=== PATIENT | male | born 1940 | race Caucasian/White ===

== ENCOUNTER → 2017-10-31 | Outpatient (CLI) | payer MEDICARE, BC ==
[2017-10-31 14:44] LABS: Basophils % (A) 1 %; Eosinophils # (A) 0.1 k/uL (0-0.7); Eosinophils % (A) 2 %; HCT 41.1 % (39.0-53.0); HGB 13.6 gm/dL (13.0-17.5); Lymphocytes # (A) 1.2 k/uL (1.0-4.8); Lymphocytes % (A) 29 %; MCH 29.6 pg (25.0-35.0); MCV 89.6 fL (80.0-100.0); Mean Platelet Volume 7.8; Monocytes # (A) 0.4 k/uL (0-1.0); Monocytes % (A) 9 %; Neutrophils # (A) 2.4 k/uL (1.3-7.7); Neutrophils % (A) 57 %; Platelet Count 142 k/uL (150-450); RBC 4.58 m/uL (4.30-5.90); RDW 13.8 % (11.5-15.5); WBC 4.2 k/uL (3.8-10.6)
[2017-10-31 15:08] LABS: Anion Gap 5 mmol/L; Blood Urea Nitrogen 13 mg/dL (9-20); Calcium 8.9 mg/dL (8.4-10.2); Carbon Dioxide 30 mmol/L (22-30); Chloride 101 mmol/L (98-107); Glucose 102 mg/dL (74-99); Potassium 4.6 mmol/L (3.5-5.1); Sodium 136 mmol/L (137-145)
[2017-10-31 15:34] LABS: Prostate Specific Antigen 5.67 ng/mL (0.00-4.00)
== END | disposition home or self-care (01) ==
LOC: LABPAT 14:04
PROVIDERS: ATTEND Urology
DX: Z01.818 Encounter for other preprocedural examination (principal); Z01.812 Encounter for preprocedural laboratory examination; N40.1 Benign prostatic hyperplasia with lower urinary tract symptoms; R35.0 Frequency of micturition; R31.29 Other microscopic hematuria; R97.20 Elevated prostate specific antigen [PSA]; R53.83 Other fatigue; Z79.899 Other long term (current) drug therapy
CPT/HCPCS: 36415; 80048; 84153; 85025; 87086; 93005

== ENCOUNTER 2017-11-14 08:30 | Day surgery (SDC) | payer MEDICARE, BC ==
[2017-11-05 12:52] VITALS: BMI 22.4
--- NOTE | 2017-11-11 21:36 | P.GSHP ---
History of Present Illness H&P Date: 11/11/17 Chief Complaint: BPH with obstruction The patient is a 76-year-old white male wwith known BPH. He has been treated with combination medical therapy (tamsulosin and finasteride), but continues to experience difficulty emptying his bladder. Cystoscopy reveals a proximal bulbous urethral stricture, as well as a completely occluding prostate. He thus comes for cystoscopy, internal ureterotomy, and transurethral resection of prostate (TURP). The patient's PSA level has been persistently elevated. Prostate ultrasound in 2011 revealed a prostate volume of 72 cc. Biopsies were negative. - Gastrointestinal Gastrointestinal: Reports abdominal pain - Integumentary Integumentary: Reports rash Past Medical History Past Medical History: Hyperlipidemia, Prostate Disorder Additional Past Medical History / Comment(s): BPH History of Any Multi-Drug Resistant Organisms: None Reported Past Surgical History: Hernia Repair Additional Past Surgical History / Comment(s): Nasal surgery, Colonoscopy Past Anesthesia/Blood Transfusion Reactions: No Reported Reaction Smoking Status: Never smoker - Past Family History Sister(s) Family Medical History: Cancer Medications and Allergies Home Medications Medication Instructions Recorded Confirmed Type Tamsulosin HCl [Flomax] 0.4 mg PO DAILY 08/01/15 11/05/17 History Aspirin [Adult Low Dose Aspirin EC] 81 mg PO DAILY 03/18/17 11/05/17 History Allergies Allergy/AdvReac Type Severity Reaction Status Date / Time No Known Allergies Allergy Verified 11/05/17 12:32 Surgical - Exam - General well developed, well nourished, no distress - Respiratory normal respiratory effort, clear to auscultation - Cardiovascular Rhythm: regular Abnormal Heart Sounds: no systolic murmur, no diastolic murmur, no rub, no S3 Gallop, no S4 Gallop, no click, no other - Abdomen Abdomen: soft, non tender, no guarding, no rigid, no rebound - Genitourinary normal penis with no external lesions, testicles non-tender Assessment and Plan (1) Enlarged prostate with lower urinary tract symptoms (LUTS) Status: Acute Code(s): N40.1 - BENIGN PROSTATIC HYPERPLASIA WITH LOWER URINARY TRACT SYMP SNOMED Code(s): 919924853 (2) Urethral stricture Status: Acute Code(s): N35.9 - URETHRAL STRICTURE, UNSPECIFIED SNOMED Code(s ): 52512802 Plan: Cystoscopy, internal ureterotomy, bipolar transurethral resection of prostate ( TURP). The procedure has been reviewed in detail with the patient. Potential risks include anesthesia, bleeding, infection, urinary incontinence, persistent voiding symptoms, bladder neck contracture, recurrent stricture, erectile dysfunction, and retrograde ejaculation. He also understands the possibility that occult prostate cancer will be identified.
[~2017-11-14 08:30] MED LIST: DEXAMETHASONE SOD PHOSPHATE 10 MG/ML 1 ML VIAL IV ONE; HYDROmorphone 1 MG/ML 1 ML SYRINGE IVP PRN; ONDANSETRON 4 MG/2 ML VIAL IVP ONE; ceFAZolin IN SWFI 2 GM/20 ML SYRINGE IVP ONE
[2017-11-14] MEDS: LACTATED RINGERS 1,000 ML IV SCH ×2 (08:59→13:43)
[2017-11-14] MEDS ORDERED: LIDOCAINE 1% 20 ML VIAL (10MG/ML) FOR IV START INTRADERMA ONE (08:59)
[2017-11-14] MEDS ORDERED: fentaNYL (PF) 50 MCG/ML 2 ML AMP ONE (09:20)
[2017-11-14] MEDS ORDERED: SUCCINYLCHOLINE CHLORIDE 100 MG/5 ML SYR IV ONE (09:20)
[2017-11-14] MEDS ORDERED: MIDAZOLAM 2 MG/2 ML VIAL ONE (09:20)
[2017-11-14] MEDS ORDERED: SODIUM CHLORIDE 0.9% 50 ML with ceFAZolin 2,000 MG IV ONE ×2 (09:20)
[2017-11-14] MEDS ORDERED: ePHEDrine SULFATE/0.9% NACL/PF 50 MG/5 ML SYRINGE IV ONE (09:20)
[2017-11-14] MEDS ORDERED: WATER FOR INJECTION, STERILE 10 ML VIAL IV ONE (09:20)
[2017-11-14] MEDS ORDERED: PROPOFOL 10 MG/ML 20 ML VIAL IV ONE (09:20)
[2017-11-14] MEDS ORDERED: LIDOCAINE 1% INJ 10MG/ML (20 ML MDV) ONE (09:20)
[2017-11-14] MEDS ORDERED: LACTATED RINGERS 1,000 ML IV ONE (12:00)
[2017-11-14] MEDS ORDERED: BELLADONNA-OPIUM 16.2-60 MG 1 EACH SUPP RECTAL PRN (13:20)
[2017-11-14] MEDS ORDERED: ACETAMINOPHEN TAB 325 MG TAB PO PRN (13:20)
[2017-11-14] MEDS ORDERED: HYDROmorphone 1 MG/ML 1 ML SYRINGE IVP PRN (13:21)
[2017-11-14] MEDS ORDERED: HYDROcodone/APAP 5-325MG 1 EACH TAB PO PRN ×2 (13:21)
[2017-11-14] MEDS: DEXTROSE 5%-0.45% NACL 1,000 ML IV SCH (14:04)
[2017-11-14] MEDS: SODIUM CHLORIDE 0.9% IRRIG 3,000 ML BAG IRRIGATION SCH (14:58)
--- NOTE | 2017-11-14 18:15 | P.OP ---
Date of Procedure: 11/14/17 Preoperative Diagnosis: Urethral stricture, BPH Postoperative Diagnosis: Same Procedure(s) Performed: Cystoscopy, direct visual internal ureterotomy (DVIU), bipolar transurethral resection of prostate (TURP) Anesthesia: RENETTA Surgeon: Shawn Pittman Estimated Blood Loss (ml): 300 IV fluids (ml): 1,000 Pathology: other (prostate chips) Condition: stable Disposition: PACU Indications for Procedure: The patient is a 76-year-old white male wwith known BPH. He has been treated with combination medical therapy (tamsulosin and finasteride), but continues to experience difficulty emptying his bladder. Cystoscopy reveals a proximal bulbous urethral stricture, as well as a completely occluding prostate. He thus comes for cystoscopy, internal ureterotomy, and transurethral resection of prostate (TURP). Operative Findings: Proximal bulbous urethral stricture. Completely obstructing trilobar BPH. Description of Procedure: The patient was taken to the operating room and placed in the dorsolithotomy position, with his legs supported in Milad stirrups. The external genitalia was prepped and draped sterilely. The 0 lens was used to advance the visual urethrotome into the urethra. A stricture was encountered within the bulbous urethra, measuring approximately 14 [place] Islander in caliber. The length of the stricture was approximately 1 cm. Using the half-khoury blade, the stricture was incised at the 12 o'clock position. The incision was carried through the full- thickness of the stricture. It was then possible to advance the visual urethrotome into the bladder. The visual urethrotome was removed, and the Stortz resectoscope sheath was introduced into the bladder. The ureteral orifices could not be identified, as there were obscured by a large median lobe. The resectoscope was withdrawn into the bulbous urethra. Lateral lobe enlargement was also noted, resulting in complete obstruction of the prostatic urethra. Using the bipolar cutting loop, the median lobe was resected in its entirety. Next, each of the lateral lobes were resected down to the surgical capsule. There was a considerable amount of anterior tissue, which was then resected. The floor of the prostate was then resected, proximal to the verumontanum. This left the prostatic fossa wide open. The apical tissue was then carefully resected. Blood loss throughout the procedure was somewhat greater than is typical, at times making visualization difficult. The entire prostatic fossa was carefully examined. Any areas of bleeding were controlled with electrocautery, but it was not possible to obtain excellent hemostasis. Care was taken not to resect the apical tissue beyond the verumontanum, thus leaving the external urinary sphincter intact. The Fishki evacuator was used to remove all prostatic chips from the bladder. These were saved and sent for pathologic examination. The resectoscope was removed, and a 22-[place] Islander, three-way Storm catheter was placed. Continuous bladder irrigation was started using 0.9 normal saline. The return was pink tinged. The patient tolerated the procedure well was taken to the recovery room in stable condition.
[2017-11-14] MEDS: DOCUSATE 100 MG CAP PO SCH (20:41)
[2017-11-15] MEDS: DEXTROSE 5%-0.45% NACL 1,000 ML IV SCH ×2 (04:11→17:27)
[2017-11-15] MEDS: LACTATED RINGERS 1,000 ML IV SCH (07:31)
[2017-11-15] MEDS: DOCUSATE 100 MG CAP PO SCH ×2 (08:03→20:29)
[2017-11-15] MEDS ORDERED: HYDROmorphone 2 MG TAB PO PRN (11:09)
[2017-11-15 15:18] VITALS: RESP 16
[2017-11-15] MEDS: SODIUM CHLORIDE 0.9% IRRIG 3,000 ML BAG IRRIGATION SCH (16:41)
--- NOTE | 2017-11-15 20:31 | P.PN ---
Progress Note - Text Progress Note Date: 11/15/17 The patient was seen earlier this morning. At that time, the urine was essentially clear with continuous bladder irrigation running. He was comfortable. He was afebrile with stable vital signs. Continuous bladder irrigation was held, and throughout the day hematuria was noted without clots. The decision was made for him to remain hospitalized an additional day.
[2017-11-16] MEDS: DOCUSATE 100 MG CAP PO SCH (11:08)
--- NOTE | 2017-11-16 12:45 | P.DS ---
Providers Expected date of discharge: 11/16/17 Attending physician: Shawn Pittman Primary care physician: Mikey Siuer - Discharge Diagnosis(es) (1) Enlarged prostate with lower urinary tract symptoms (LUTS) Current Visit: No Status: Acute (2) Urethral stricture Current Visit: No Status: Acute Hospital Course: On the day of admission, the patient underwent a DVIU and bipolar TURP. Postoperatively, there was somewhat more bleeding than is typical. He was otherwise afebrile with stable vital signs, and quite comfortable. Continuous bladder irrigation was discontinued on the first postoperative day, but the urine was pinkred in color. On the second postoperative day, the urine was clear yellow in color, and he was comfortable. He will thus be discharged home with the Storm catheter. Procedures: Cystoscopy, DVIU, bipolar TURP on 11/14/2017. Patient Condition at Discharge: Good Plan - Discharge Summary Discharge Rx Participant: Yes New Discharge Prescriptions: No Action Tamsulosin HCl [Flomax] 0.4 mg PO DAILY Aspirin [Adult Low Dose Aspirin EC] 81 mg PO DAILY Discharge Medication List Tamsulosin HCl [Flomax] 0.4 mg PO DAILY 08/01/15 [History] Aspirin [Adult Low Dose Aspirin EC] 81 mg PO DAILY 03/18/17 [History] Follow up Appointment(s)/Referral(s): Shawn Pittman MD [STAFF PHYSICIAN] - 10 Days Activity/Diet/Wound Care/Special Instructions: Discharge home with Storm catheter. Plug irrigation port of the catheter. No lifting or strenuous activity. Drink plenty of fluids. Patient has been instructed to remove Storm catheter early in the morning on 11/19/2017. Discharge Disposition: HOME SELF-CARE
[2017-11-16 14:44] VITALS: BP 141/67; PULSE 85; TEMP 97.6
[2017-11-16] MEDS: SODIUM CHLORIDE 0.9% IRRIG 3,000 ML BAG IRRIGATION SCH (17:24)
== END 2017-11-16 18:40 | disposition home or self-care (01) ==
LOC: OR 08:30 → 3SUR 12:46 → OR 11-16 18:40
PROVIDERS: ATTEND Urology
DX: N40.1 Benign prostatic hyperplasia with lower urinary tract symptoms (principal); R39.14 Feeling of incomplete bladder emptying; Q62.10 Congenital occlusion of ureter, unspecified
CPT/HCPCS: 88305; 52601; J2250; J1100; J2405; J2001; J3010; J0330; J2704; J0690

== ENCOUNTER 2017-11-22 12:19 | Observation (INO) | payer MEDICARE, BC ==
[2017-11-22] MEDS ORDERED: SODIUM CHLORIDE 0.9% IRRIGATIO 3,000 ML IRRIGATION ONE ×4 (12:32→16:42)
--- NOTE | 2017-11-22 12:35 | ED ---
Male Urogenital HPI - General Source: patient, EMS, RN notes reviewed Mode of arrival: EMS Limitations: no limitations <Percy Mckeon - Last Filed: 11/22/17 18:03> <Mikey Jones - Last Filed: 11/23/17 00:27> - General Chief complaint: Urogenital Stated complaint: Urinary Retention Time Seen by Provider: 11/22/17 12:23 - History of Present Illness Initial comments: 76-year-old male presents emergency Department as a transfer from [facility] for urinary retention, hematuria. Patient had a TURP procedure by Dr. Pittman on 11/14/2017. Patient states he self removed his catheter on November 20. Patient states he is able to go he did state that there was some burning, mild blood states that since last night into today he was unable to really get much urine out. Patient went to the hospital was found to have urinary retention secondary to a blood clot. He did have a Storm placed there were unable to irrigate it thoroughly replaced it with a three-way Storm. Patient states that they're able to irrigate some urine output is very bloody and he was transferred here for further care. Patient states he feels that it's building up again and states that he feels some pressure in his lower abdomen. Patient denies any vomiting, diarrhea, constipation, fever, chills. (Percy Mckeon) - Related Data Home Medications Medication Instructions Recorded Confirmed Tamsulosin HCl [Flomax] 0.4 mg PO DAILY 08/01/15 11/22/17 Aspirin [Adult Low Dose Aspirin EC] 81 mg PO DAILY 03/18/17 11/22/17 Allergies Allergy/AdvReac Type Severity Reaction Status Date / Time No Known Allergies Allergy Verified 11/22/17 17:34 Review of Systems ROS Other: All systems not noted in ROS Statement are negative. <Percy Mckeon - Last Filed: 11/22/17 18:03> ROS Other: All systems not noted in ROS Statement are negative. <Mikey Jones - Last Filed: 11/23/17 00:27> ROS Statement: Those systems with pertinent positive or pertinent negative responses have been documented in the HPI. Past Medical History Past Medical History: Prostate Disorder Additional Past Medical History / Comment(s): BPH History of Any Multi-Drug Resistant Organisms: None Reported Past Surgical History: Hernia Repair Additional Past Surgical History / Comment(s): nasal surgery and colonoscopy, TURP Past Anesthesia/Blood Transfusion Reactions: No Reported Reaction Past Psychological History: No Psychological Hx Reported Smoking Status: Never smoker Past Alcohol Use History: Occasional Past Drug Use History: None Reported - Past Family History Sister(s) Family Medical History: Cancer <Percy Mckeon - Last Filed: 11/22/17 18:03> General Exam Limitations: no limitations General appearance: alert, in no apparent distress Head exam: Present: atraumatic, normocephalic, normal inspection Neck exam: Present: normal inspection. Absent: tenderness, meningismus, lymphadenopathy Respiratory exam: Present: normal lung sounds bilaterally. Absent: respiratory distress, wheezes, rales, rhonchi, stridor Cardiovascular Exam: Present: regular rate, normal rhythm, normal heart sounds. Absent: systolic murmur, diastolic murmur, rubs, gallop, clicks GI/Abdominal exam: Present: soft, tenderness (Mild suprapubic), normal bowel sounds. Absent: distended, guarding, rebound, rigid Back exam: Absent: CVA tenderness (R), CVA tenderness (L) Skin exam: Present: warm, dry, intact, normal color. Absent: rash <Percy Mckeon - Last Filed: 11/22/17 18:03> Vital Signs 11/22/17 11/22/17 12:28 17:25 Temperature 97.3 F L 98.3 F Pulse Rate 79 80 Respiratory 18 18 Rate Blood Pressure 199/95 139/69 O2 Sat by Pulse 99 99 Oximetry Medical Decision Making - Lab Data Result diagrams: 11/22/17 12:33 11/22/17 12:33 <Percy Mckeon - Last Filed: 11/22/17 18:03> - Lab Data Result diagrams: 11/22/17 12:33 11/22/17 12:33 <Mikey Jones - Last Filed: 11/23/17 00:27> - Medical Decision Making 76-year-old male presented from [place] for urinary retention, hematuria. Patient had gross hematuria while in the emergency department. He's had constant irrigation, flushing for clot removal. He continues to have bleeding at this time. Patient was evaluated by urology Dr. Prado in the emergency department. Patient will be taken to the lower at this time. (Percy Mckeon) 76-year-old male with urinary retention and hematuria. Patient was evaluated by previous physician, Dr. Summers. Patient was awaiting bladder irrigation in the emergency department with plans for a large. Patient evaluated by urology and taken to the operating room. I personally did not evaluate this patient. ( Mikey Jones) - Lab Data Lab Results 11/22/17 11/22/17 11/22/17 Range/Units 12:33 12:33 12:33 WBC 8.8 (3.8-10.6) k/uL RBC 3.71 L (4.30-5.90) m/uL Hgb 10.8 L (13.0-17.5) gm/dL Hct 32.3 L (39.0-53.0) % MCV 86.9 (80.0-100.0) fL MCH 29.2 (25.0-35.0) pg MCHC 33.6 (31.0-37.0) g/dL RDW 13.6 (11.5-15.5) % Plt Count 163 (150-450) k/uL Neutrophils % 83 % Lymphocytes % 10 % Monocytes % 5 % Eosinophils % 1 % Basophils % 0 % Neutrophils # 7.3 (1.3-7.7) k/uL Lymphocytes # 0.9 L (1.0-4.8) k/uL Monocytes # 0.5 (0-1.0) k/uL Eosinophils # 0.1 (0-0.7) k/uL Basophils # 0.0 (0-0.2) k/uL PT 10.5 (9.0-12.0) sec INR 1.1 (<1.2) APTT 23.3 (22.0-30.0) sec Sodium 132 L (137-145) mmol/L Potassium 4.4 (3.5-5.1) mmol/L Chloride 101 (98-107) mmol/L Carbon Dioxide 25 (22-30) mmol/L Anion Gap 6 mmol/L BUN 14 (9-20) mg/dL Creatinine 0.69 (0.66-1.25) mg/dL Est GFR (CKD-EPI)AfAm >90 (>60 ml/min/1.73 sqM) Est GFR (CKD-EPI)NonAf >90 (>60 ml/min/1.73 sqM) Glucose 115 H (74-99) mg/dL Calcium 8.4 (8.4-10.2) mg/dL Total Bilirubin 0.5 (0.2-1.3) mg/dL AST 30 (17-59) U/L ALT 39 (21-72) U/L Alkaline Phosphatase 67 (38-126) U/L Total Protein 5.2 L (6.3-8.2) g/dL Albumin 3.2 L (3.5-5.0) g/dL Disposition <Percy Mckeon - Last Filed: 11/22/17 18:03> <Mikey Jones - Last Filed: 11/23/17 00:27> Clinical Impression: Hematuria, Urinary retention, Status post recent transurethral resection of prostate Disposition: ADMITTED IP TO THIS HOSP Condition: Fair
[2017-11-22 12:52] LABS: Basophils % (A) 0 %; Eosinophils # (A) 0.1 k/uL (0-0.7); Eosinophils % (A) 1 %; HCT 32.3 % (39.0-53.0); HGB 10.8 gm/dL (13.0-17.5); Lymphocytes # (A) 0.9 k/uL (1.0-4.8); Lymphocytes % (A) 10 %; MCH 29.2 pg (25.0-35.0); MCHC 33.6 g/dL (31.0-37.0); MCV 86.9 fL (80.0-100.0); Monocytes # (A) 0.5 k/uL (0-1.0); Monocytes % (A) 5 %; Neutrophils # (A) 7.3 k/uL (1.3-7.7); Neutrophils % (A) 83 %; Platelet Count 163 k/uL (150-450); RBC 3.71 m/uL (4.30-5.90); RDW 13.6 % (11.5-15.5); WBC 8.8 k/uL (3.8-10.6)
[2017-11-22 13:04] LABS: INR 1.1 (<1.2); Partial Thromboplastin Time 23.3 sec (22.0-30.0); Prothrombin Time 10.5 sec (9.0-12.0)
[2017-11-22 13:08] LABS: ALT 39 U/L (21-72); AST 30 U/L (17-59); Albumin 3.2 g/dL (3.5-5.0); Alkaline Phosphatase 67 U/L (38-126); Anion Gap 6 mmol/L; Blood Urea Nitrogen 14 mg/dL (9-20); Calcium 8.4 mg/dL (8.4-10.2); Carbon Dioxide 25 mmol/L (22-30); Chloride 101 mmol/L (98-107); Glucose 115 mg/dL (74-99); Potassium 4.4 mmol/L (3.5-5.1); Sodium 132 mmol/L (137-145); Total Bilirubin 0.5 mg/dL (0.2-1.3); Total Protein 5.2 g/dL (6.3-8.2)
--- NOTE | 2017-11-22 18:05 | P.GSHP ---
History of Present Illness H&P Date: 11/22/17 Chief Complaint: Gross hematuria This is an interval history and physical. The patient originally underwent TURP and DVIU performed by Dr. Pittman on 11/14/2017 for treatment of bladder outflow obstruction secondary to BPH and a urethral stricture. The patient was discharged on 11/16 with his catheter in place. He says his urine was clear by 11/18 and he removed his catheter as directed on 11/19. He says that he began experiencing bloody urine immediately after the catheter is removed. The patient was able to void up until this morning when he began experiencing blood clots which prevented him from emptying his bladder. He went to the [place] emergency room early this morning where a catheter was inserted and multiple clots were removed. A three-way catheter was inserted as the patient continued to have gross hematuria. He was transferred to the [facility] emergency room where he continued to have gross hematuria. I saw the patient at approximately 3:30 is afternoon and irrigated several clots from his bladder. At that time his bladder hadn't been distended by irrigating fluid to over 500 mL. Since then he has continued to have bright red blood draining from the bladder despite continuous irrigation. The findings are consistent with an arterial bleed. Cystoscopy under anesthesia is planned to control the bleeding. The remainder the patient's history and physical are essentially unchanged from that noted on the history and physical performed by Dr. Pittman prior to the surgery done on 11/14/2017. - Review of Systems All systems: negative (as noted on the history and physical.) Past Medical History Past Medical History: Prostate Disorder Additional Past Medical History / Comment(s): BPH History of Any Multi-Drug Resistant Organisms: None Reported Past Surgical History: Hernia Repair, Prostate Surgery (Bipolar TURP and direct vision internal urethrotomy 11/14/2017) Additional Past Surgical History / Comment(s): nasal surgery and colonoscopy, TURP Past Anesthesia/Blood Transfusion Reactions: No Reported Reaction Past Psychological History: No Psychological Hx Reported Smoking Status: Never smoker Past Alcohol Use History: Occasional Past Drug Use History: None Reported - Past Family History Sister(s) Family Medical History: Cancer Medications and Allergies Home Medications Medication Instructions Recorded Confirmed Type Tamsulosin HCl [Flomax] 0.4 mg PO DAILY 08/01/15 11/22/17 History Aspirin [Adult Low Dose Aspirin EC] 81 mg PO DAILY 03/18/17 11/22/17 History Allergies Allergy/AdvReac Type Severity Reaction Status Date / Time No Known Allergies Allergy Verified 11/22/17 17:34 Surgical - Exam Vital Signs Temp Pulse Resp BP Pulse Ox 97.3 F L 79 18 199/95 99 11/22/17 12:28 11/22/17 12:28 11/22/17 12:28 11/22/17 12:28 11/22/17 12:28 - General well developed, moderate distress - Respiratory normal respiratory effort - Abdomen Abdomen: tender (suprapubic area prior to drainage of bladder) - Genitourinary normal penis with no external lesions, other (22-Latvian three-way catheter is in place and is draining red colored urine with occasional clots despite continuous bladder irrigation) Results - Labs 11/22/17 12:33 11/22/17 12:33 Abnormal Lab Results - Last 24 Hours (Table) 11/22/17 11/22/17 Range/Units 12:33 12:33 RBC 3.71 L (4.30-5.90) m/uL Hgb 10.8 L (13.0-17.5) gm/dL Hct 32.3 L (39.0-53.0) % Lymphocytes # 0.9 L (1.0-4.8) k/uL Sodium 132 L (137-145) mmol/L Glucose 115 H (74-99) mg/dL Total Protein 5.2 L (6.3-8.2) g/dL Albumin 3.2 L (3.5-5.0) g/dL Diabetes panel 11/22/17 Range/Units 12:33 Sodium 132 L (137-145) mmol/L Potassium 4.4 (3.5-5.1) mmol/L Chloride 101 (98-107) mmol/L Carbon Dioxide 25 (22-30) mmol/L BUN 14 (9-20) mg/dL Creatinine 0.69 (0.66-1.25) mg/dL Glucose 115 H (74-99) mg/dL Calcium 8.4 (8.4-10.2) mg/dL AST 30 (17-59) U/L ALT 39 (21-72) U/L Alkaline Phosphatase 67 (38-126) U/L Total Protein 5.2 L (6.3-8.2) g/dL Albumin 3.2 L (3.5-5.0) g/dL Calcium panel 11/22/17 Range/Units 12:33 Calcium 8.4 (8.4-10.2) mg/dL Albumin 3.2 L (3.5-5.0) g/dL Pituitary panel 11/22/17 Range/Units 12:33 Sodium 132 L (137-145) mmol/L Potassium 4.4 (3.5-5.1) mmol/L Chloride 101 (98-107) mmol/L Carbon Dioxide 25 (22-30) mmol/L BUN 14 (9-20) mg/dL Creatinine 0.69 (0.66-1.25) mg/dL Glucose 115 H (74-99) mg/dL Calcium 8.4 (8.4-10.2) mg/dL Adrenal panel 11/22/17 Range/Units 12:33 Sodium 132 L (137-145) mmol/L Potassium 4.4 (3.5-5.1) mmol/L Chloride 101 (98-107) mmol/L Carbon Dioxide 25 (22-30) mmol/L BUN 14 (9-20) mg/dL Creatinine 0.69 (0.66-1.25) mg/dL Glucose 115 H (74-99) mg/dL Calcium 8.4 (8.4-10.2) mg/dL Total Bilirubin 0.5 (0.2-1.3) mg/dL AST 30 (17-59) U/L ALT 39 (21-72) U/L Alkaline Phosphatase 67 (38-126) U/L Total Protein 5.2 L (6.3-8.2) g/dL Albumin 3.2 L (3.5-5.0) g/dL Assessment and Plan (1) Hematuria Narrative/Plan: The patient's gross hematuria is most likely related to active bleeding from the prostatic fossa. The patient had been taking a baby aspirin daily beginning several days ago which may also have contributed to the bleeding. In view of the active bleeding and continued problems with catheter plugging from clots I believe that cystoscopy under anesthesia with cautery of active bleeding should be performed as soon as possible and this will be done tonight. Current Visit: Yes Status: Acute Code(s): R31.9 - HEMATURIA, UNSPECIFIED SNOMED Code(s): 46472521
[2017-11-22] MEDS ORDERED: LIDOCAINE 1% INJ 10MG/ML (20 ML MDV) ONE (18:16)
[2017-11-22] MEDS ORDERED: PROPOFOL 10 MG/ML 20 ML VIAL IV ONE (18:16)
[2017-11-22] MEDS ORDERED: fentaNYL (PF) 50 MCG/ML 2 ML AMP ONE (18:16)
[2017-11-22] MEDS ORDERED: LACTATED RINGERS 1,000 ML IV ONE (18:44)
--- NOTE | 2017-11-22 19:45 | P.OP ---
Date of Procedure: 11/22/17 Preoperative Diagnosis: Post TURP gross hematuria with clot retention Postoperative Diagnosis: Post TURP gross hematuria with clot urinary retention Procedure(s) Performed: Cystoscopy with evacuation of blood clots and cautery of prostatic fossa Anesthesia: RENETTA Surgeon: Jonnie Prado Estimated Blood Loss (ml): 15 Pathology: none sent Condition: stable Disposition: PACU Indications for Procedure: The patient is a 76-year-old male who underwent TURP on 11/14. His catheter was removed on 11/19 and he has had persistent gross hematuria since then. About urinary retention secondary to clots which had been consistently plugging his catheter since this morning. Cystoscopy under anesthesia is planned. Description of Procedure: The patient was taken the operating suite where adequate general anesthesia via mask was instituted. The patient was placed in the dorsal lithotomy position with his legs suspended from padded Milad stirrups. Patient's urethral catheter was removed. Penile and prostatic urethra traversed under direct vision using the 19-Austrian cystoscope sheath. The prostatic fossa and bladder appeared plugged with clots. The cystoscope was removed. The 25-Austrian resectoscope sheath with visual obturator and 30 lens was passed through the penile and prostatic urethra under direct vision. Using the resectoscope loop the clot was teased away from the prostatic fossa. The clot within the bladder and prostatic fossa was then irrigated out using the helical evacuator. An estimated 500 mL of old clot was removed. The prostatic fossa and bladder neck was then thoroughly examined. There appeared to be some oozing near the apex of the prostate between 5 and 7:00 and between 11 and 1:00. These areas were cauterized. There was also some oozing at the bladder neck at 7:00 which was cauterized. At the completion the procedure hemostasis appeared good. Resectoscope was withdrawn. A 22-Austrian three-way catheter with 30 mL balloon was inserted using a wire catheter guide. This was connected to continuous bladder irrigation and gravity drainage. The patient tolerated procedure well and will be admitted for observation. Blood loss during the procedure was less than 15 mL.
[2017-11-22] MEDS: D5-0.45% NACL WITH KCL 20MEQ/L 1,000 ML IV SCH (21:09)
--- NOTE | 2017-11-23 09:02 | P.DS ---
Providers Date of admission: 11/22/17 18:32 Expected date of discharge: 11/23/17 Attending physician: Jonnie Prado Primary care physician: Mikey Fernandes - Discharge Diagnosis(es) (1) Hematuria The patient had undergone TURP on 11/14 and removed his catheter on 11/19. He developed gross hematuria which resulted in clot urinary retention on 11/22. He was transferred from the [place] emergency room and it was impossible to remove all the clots from the patient's bladder in the emergency room when he arrived here. He underwent cystoscopy under anesthesia where approximately 12- 16 ounces of old clot were removed from the bladder and prostatic fossa. Several oozing areas within the prostatic fossa were cauterized. A three-way catheter was inserted following the surgery and the patient was treated with continuous bladder irrigation overnight. His urine was clear the following morning. He will be discharged with the catheter in place with the intent that if the urine remains clear the catheter will be removed on 11/25. Current Visit: Yes Status: Acute Patient Condition at Discharge: Fair Plan - Discharge Summary Discharge Rx Participant: No New Discharge Prescriptions: Discontinued Aspirin [Adult Low Dose Aspirin EC] 81 mg PO DAILY No Action Tamsulosin HCl [Flomax] 0.4 mg PO DAILY Discharge Medication List Tamsulosin HCl [Flomax] 0.4 mg PO DAILY 08/01/15 [History] Follow up Appointment(s)/Referral(s): Mikey Fernandes MD [Primary Care Provider] - As Needed Shawn Pittman MD [STAFF PHYSICIAN] - 11/25/17 2:00 pm Activity/Diet/Wound Care/Special Instructions: Catheter to drainage. The patient is to call Dr. Pittman Saturday morning at 8 AM to see if he can remove his catheter at that time. Discharge Disposition: HOME SELF-CARE
[2017-11-23 10:00] VITALS: RESP 14
[2017-11-23] MEDS: D5-0.45% NACL WITH KCL 20MEQ/L 1,000 ML IV SCH (10:14)
[2017-11-23 15:23] VITALS: BP 116/51; PULSE 76; TEMP 98.1
== END 2017-11-23 17:46 | disposition home or self-care (01) ==
LOC: EC 12:19 → 3SUR 18:32
PROVIDERS: ADMIT Urology; ATTEND Urology
DX: R31.0 Gross hematuria (principal); N32.89 Other specified disorders of bladder; R33.9 Retention of urine, unspecified; N40.0 Benign prostatic hyperplasia without lower urinary tract symptoms; Z80.9 Family history of malignant neoplasm, unspecified; Z79.82 Long term (current) use of aspirin; Z79.899 Other long term (current) drug therapy; Z98.890 Other specified postprocedural states
CPT/HCPCS: 52001; 99284; 36415; 80053; 85025; 85610; 85730; G0378 ×2; J2001; J3010; J2704

== ENCOUNTER 2020-04-22 13:18 | Emergency (ER) | payer BC, MEDICARE ==
[2020-04-22 13:42] VITALS: RESP 18
--- NOTE | 2020-04-22 14:52 | ED ---
General Adult HPI - General Chief complaint: Urogenital Stated complaint: Blood in Urine Time Seen by Provider: 04/22/20 13:53 Source: patient, RN notes reviewed, old records reviewed Mode of arrival: ambulatory Limitations: no limitations - History of Present Illness Initial comments: 79-year-old male presenting with chief complaint of hematuria. Patient has history of BPH, he had a TURP procedure performed in 2018. He states that approximate 45 days ago he developed hematuria with blood clots. He had urinary obstruction and retention which was treated with a Storm catheter placed at an outside hospital yesterday. He's had eileen blood in his catheter since that time. He denies significant pain, no flank pain, no lower abdominal pain. He i s on aspirin daily. No other anticoagulation. No fever. No vomiting. - Related Data Home Medications Medication Instructions Recorded Confirmed Aspirin EC [Ecotrin Low Dose] 81 mg PO DAILY 04/22/20 04/22/20 Calcium(Unknown) 1 tab PO DAILY 04/22/20 04/22/20 Vitamin C(Unknown) 1 tab PO DAILY 04/22/20 04/22/20 Vitamin D3(Unknown) 1 tab PO DAILY 04/22/20 04/22/20 Previous Rx's Medication Instructions Recorded Cephalexin [Keflex] 500 mg PO Q12HR #20 cap 04/22/20 Allergies Allergy/AdvReac Type Severity Reaction Status Date / Time No Known Allergies Allergy Verified 04/22/20 15:41 Review of Systems ROS Statement: Those systems with pertinent positive or pertinent negative responses have been documented in the HPI. ROS Other: All systems not noted in ROS Statement are negative. Past Medical History Past Medical History: Prostate Disorder Additional Past Medical History / Comment(s): BPH History of Any Multi-Drug Resistant Organisms: None Reported Past Surgical History: Hernia Repair, Prostate Surgery Additional Past Surgical History / Comment(s): nasal surgery and colonoscopy, TURP Past Anesthesia/Blood Transfusion Reactions: No Reported Reaction Past Psychological History: No Psychological Hx Reported Smoking Status: Never smoker Past Alcohol Use History: Occasional Past Drug Use History: None Reported - Past Family History Sister(s) Family Medical History: Cancer General Exam Limitations: no limitations General appearance: alert, in no apparent distress Head exam: Present: atraumatic, normocephalic Eye exam: Present: normal appearance, PERRL ENT exam: Present: normal exam Neck exam: Present: normal inspection. Absent: tenderness, meningismus Respiratory exam: Present: normal lung sounds bilaterally. Absent: respiratory distress, wheezes Cardiovascular Exam: Present: regular rate, normal rhythm GI/Abdominal exam: Present: soft. Absent: distended, tenderness, guarding exam: Present: urethral discharge (Small amount of blood at the urethral meatus surrounding the catheter) Extremities exam: Present: normal inspection, normal capillary refill. Absent: pedal edema Back exam: Absent: CVA tenderness (R), CVA tenderness (L) Neurological exam: Present: alert, oriented X3, CN II-XII intact. Absent: motor sensory deficit Psychiatric exam: Present: normal affect, normal mood Skin exam: Present: warm, dry, intact, pallor Course Vital Signs 04/22/20 13:39 Temperature 98.2 F Pulse Rate 97 Respiratory 18 Rate Blood Pressure 144/78 O2 Sat by Pulse 99 Oximetry Medical Decision Making - Medical Decision Making 79-year-old male with hematuria. Patient has eileen hematuria, no clots, urine is flowing freely through full catheter. Ultrasound performed shows renal cyst, no other acute findings. Patient has a stable hemoglobin, normal kidney function, urinalysis is hemorrhagic. I discussed case with Dr. Zachariah kumari for urology, recommends close outpatient follow-up at this time. Patient will return with obstruction or retention. - Lab Data Result diagrams: 04/22/20 14:37 04/22/20 14:37 Lab Results 04/22/20 04/22/20 04/22/20 Range/Units 14:37 14:37 14:37 WBC 8.8 (3.8-10.6) k/uL RBC 4.66 (4.30-5.90) m/uL Hgb 13.7 (13.0-17.5) gm/dL Hct 40.2 (39.0-53.0) % MCV 86.3 (80.0-100.0) fL MCH 29.4 (25.0-35.0) pg MCHC 34.0 (31.0-37.0) g/dL RDW 13.5 (11.5-15.5) % Plt Count 145 L (150-450) k/uL MPV 7.7 Neutrophils % 68 % Lymphocytes % 21 % Monocytes % 7 % Eosinophils % 1 % Basophils % 1 % Neutrophils # 6.0 (1.3-7.7) k/uL Lymphocytes # 1.9 (1.0-4.8) k/uL Monocytes # 0.7 (0-1.0) k/uL Eosinophils # 0.1 (0-0.7) k/uL Basophils # 0.1 (0-0.2) k/uL PT 10.8 (9.0-12.0) sec INR 1.0 (<1.2) APTT 23.5 (22.0-30.0) sec Sodium (137-145) mmol/L Potassium (3.5-5.1) mmol/L Chloride (98-107) mmol/L Carbon Dioxide (22-30) mmol/L Anion Gap mmol/L BUN (9-20) mg/dL Creatinine (0.66-1.25) mg/dL Est GFR (CKD-EPI)AfAm (>60 ml/min/1.73 sqM) Est GFR (CKD-EPI)NonAf (>60 ml/min/1.73 sqM) Glucose (74-99) mg/dL Calcium (8.4-10.2) mg/dL Total Bilirubin (0.2-1.3) mg/dL AST (17-59) U/L ALT (4-49) U/L Alkaline Phosphatase (38-126) U/L Total Protein (6.3-8.2) g/dL Albumin (3.5-5.0) g/dL Urine Color Red Urine Appearance Bloody (Clear) Urine RBC >182 H (0-5) /hpf Urine WBC >182 H (0-5) /hpf Urine Yeast (Budding) Moderate H (None) /hpf 04/22/20 Range/Units 14:37 WBC (3.8-10.6) k/uL RBC (4.30-5.90) m/uL Hgb (13.0-17.5) gm/dL Hct (39.0-53.0) % MCV (80.0-100.0) fL MCH (25.0-35.0) pg MCHC (31.0-37.0) g/dL RDW (11.5-15.5) % Plt Count (150-450) k/uL MPV Neutrophils % % Lymphocytes % % Monocytes % % Eosinophils % % Basophils % % Neutrophils # (1.3-7.7) k/uL Lymphocytes # (1.0-4.8) k/uL Monocytes # (0-1.0) k/uL Eosinophils # (0-0.7) k/uL Basophils # (0-0.2) k/uL PT (9.0-12.0) sec INR (<1.2) APTT (22.0-30.0) sec Sodium 134 L (137-145) mmol/L Potassium 4.3 (3.5-5.1) mmol/L Chloride 100 (98-107) mmol/L Carbon Dioxide 28 (22-30) mmol/L Anion Gap 6 mmol/L BUN 18 (9-20) mg/dL Creatinine 0.76 (0.66-1.25) mg/dL Est GFR (CKD-EPI)AfAm >90 (>60 ml/min/1.73 sqM) Est GFR (CKD-EPI)NonAf 88 (>60 ml/min/1.73 sqM) Glucose 118 H (74-99) mg/dL Calcium 9.4 (8.4-10.2) mg/dL Total Bilirubin 0.8 (0.2-1.3) mg/dL AST 32 (17-59) U/L ALT 20 (4-49) U/L Alkaline Phosphatase 80 (38-126) U/L Total Protein 6.7 (6.3-8.2) g/dL Albumin 4.1 (3.5-5.0) g/dL Urine Color Urine Appearance (Clear) Urine RBC (0-5) /hpf Urine WBC (0-5) /hpf Urine Yeast (Budding) (None) /hpf Disposition Clinical Impression: Hematuria, Renal cyst, UTI (urinary tract infection) Disposition: HOME SELF-CARE Condition: Fair Instructions (If sedation given, give patient instructions): Urinary Tract Infection in Men (ED), Hematuria (ED) Prescriptions: Cephalexin [Keflex] 500 mg PO Q12HR #20 cap Is patient prescribed a controlled substance at d/c from ED?: No Referrals: Malick Christina MD [Primary Care Provider] - 1-2 days Jose David Soni MD [STAFF PHYSICIAN] - 1-2 days Time of Disposition: 15:48
[2020-04-22 14:53] LABS: Appearance,Urine Bloody (Clear); Basophils # (A) 0.1 k/uL (0-0.2); Basophils % (A) 1 %; Color,Urine Red; Eosinophils # (A) 0.1 k/uL (0-0.7); Eosinophils % (A) 1 %; HCT 40.2 % (39.0-53.0); HGB 13.7 gm/dL (13.0-17.5); Lymphocytes # (A) 1.9 k/uL (1.0-4.8); Lymphocytes % (A) 21 %; MCH 29.4 pg (25.0-35.0); MCV 86.3 fL (80.0-100.0); Mean Platelet Volume 7.7; Monocytes # (A) 0.7 k/uL (0-1.0); Monocytes % (A) 7 %; Neutrophils % (A) 68 %; Platelet Count 145 k/uL (150-450); RBC 4.66 m/uL (4.30-5.90); RDW 13.5 % (11.5-15.5); WBC 8.8 k/uL (3.8-10.6)
[2020-04-22 14:57] LABS: Budding Yeast,Urine Moderate /hpf; RBC,Urine >182 /hpf (0-5); WBC,Urine >182 /hpf (0-5)
[2020-04-22 15:00] LABS: Partial Thromboplastin Time 23.5 sec (22.0-30.0); Prothrombin Time 10.8 sec (9.0-12.0)
[2020-04-22 15:09] LABS: ALT 20 U/L (4-49); AST 32 U/L (17-59); African American GFR (CKD) >90 (>60 ml/min/1.73 sqM); Albumin 4.1 g/dL (3.5-5.0); Alkaline Phosphatase 80 U/L (38-126); Anion Gap 6 mmol/L; Blood Urea Nitrogen 18 mg/dL (9-20); Calcium 9.4 mg/dL (8.4-10.2); Carbon Dioxide 28 mmol/L (22-30); Chloride 100 mmol/L (98-107); Glucose 118 mg/dL (74-99); Non-African American GFR(CKD) 88 (>60 ml/min/1.73 sqM); Potassium 4.3 mmol/L (3.5-5.1); Sodium 134 mmol/L (137-145); Total Bilirubin 0.8 mg/dL (0.2-1.3); Total Protein 6.7 g/dL (6.3-8.2)
--- NOTE | 2020-04-22 15:18 | US ---
EXAMINATION TYPE: US renals and bladder DATE OF EXAM: 04/22/2020 COMPARISON: NONE CLINICAL HISTORY: Hematuria. Hematuria x 4 days; indwelling bladder catheter EXAM MEASUREMENTS: Right Kidney: 10.9 x 6.3 x 4.5 cm Left Kidney: 11.2 x 5.2 x 4.3 cm Post Void Residual Volume: not assessed on EC patient with indwelling bladder catheter with blood no dominique within external catheter and bag. Right Kidney: multiple small renal cysts with largest mid cortex = 1.3 x 1.1 x 0.6cm Left Kidney: No hydronephrosis or masses seen Bladder: thickened wall = 1.2cm, indwelling bladder catheter is seen urinary bladder is decompressed with a Storm catheter limiting its evaluation. There is no evidence for hydronephrosis at this point in time. No nephrolithiasis is seen. IMPRESSION: 1. Decompressed urinary bladder. Storm catheter is present 2. Right renal cysts
[2020-04-22 16:01] VITALS: BP 144/76; PULSE 81; TEMP 98.3
== END 2020-04-22 16:03 | disposition home or self-care (01) ==
LOC: EC 13:18
DX: N28.1 Cyst of kidney, acquired (principal); N39.0 Urinary tract infection, site not specified
CPT/HCPCS: 36415; 76770; 80053; 81001; 85025; 85610; 85730; 87086; 99284